=== PATIENT | male | born 1935 | race Caucasian/White ===

== ENCOUNTER 2017-02-01 05:52 | Day surgery (SDC) | payer OTHER ==
--- NOTE | 2017-01-31 13:47 | PREOPHP ---
DATE OF ADMISSION: 02/01/2017 REASON FOR ADMISSION: This 81-year-old patient is admitted for elective cataract surgery of the left eye. The patient has had progressive decrease of vision in both eyes over the past three years without prior history of eye disease or injury. The patient's systemic history is positive for hypertension and hypercholesterolemia. MEDICATIONS: Current medications include: 1. Hydrochlorothiazide. 2. Simvastatin. ALLERGIES: THERE ARE NO KNOWN ALLERGIES. PHYSICAL EXAMINATION: On examination, the visual acuity with correction is 20/50 in the right eye and 20/100 in the left eye. Slit lamp examination reveals an advance nuclear sclerotic cataract greater in the left eye than in the right eye. Applanation tonometry is 19 mmHg. Examination of the retina is within normal limits. DIAGNOSIS: Cataract left eye. Planned cataract extraction with lens implant left eye. The risks and alternatives to this surgery have been discussed with the patient, as well as the hope for improvement of visual acuity leading to great ability to perform activities of daily living. The patient understands this and agrees to proceed with surgery. Dictated By: Ovidio Watson MD /[email or web address] /Document#: [id number]
[~2017-02-01] VITALS: Ht 160 cm; Wt 56.0 kg
[2017-02-01] VITALS (12 sets, daily range): BP systolic 103–125; BP diastolic 65–74; PULSE 54–59; RESP 18–24; Ht 160 cm; Wt 56.0 kg
[2017-02-01] MEDS ORDERED: CARBACHOL 0.01% 1.5 ML OPH INJ ONE ×2 (06:28→06:30)
[2017-02-01] MEDS ORDERED: GENTAMICIN 80 MG INJ ONE (06:28)
[2017-02-01] MEDS ORDERED: DEXAMETHASONE 4 MG/ML 1 ML INJ ONE (06:28)
[2017-02-01] MEDS ORDERED: CEFAZOLIN 1 GM INJ ONE ×2 (06:28→06:30)
[2017-02-01] MEDS ORDERED: HYALURONATE/CHONDROITIN 1ML OPH INJ ONE (06:29)
[2017-02-01] MEDS ORDERED: EPINEPHrine 1 MG INJ ONE (06:29)
[2017-02-01] MEDS ORDERED: LIDOCAINE 4% (MPF) 5 ML INJ ONE (06:29)
[2017-02-01] MEDS ORDERED: HYDR12.58 PO (07:27)
[2017-02-01] MEDS ORDERED: SIMV20TA PO (07:28)
[2017-02-01] MEDS: CIPROFLOXACIN 0.3% 2.5 ML OPH LEFT EYE SCH ×3 (07:29→07:41)
[2017-02-01] MEDS: DICLOFENAC 0.1% 2.5 ML OPH LEFT EYE SCH ×3 (07:29→07:42)
[2017-02-01] MEDS: TROPICAMIDE 1% 2 ML OPH LEFT EYE SCH ×3 (07:29→07:41)
[2017-02-01] MEDS: CYCLOPENTOLATE/PHENYLEPH 2 ML OPH LEFT EYE SCH ×3 (07:30→07:41)
[2017-02-01] MEDS ORDERED: PROPOFOL 20 ML ONE (07:46)
[2017-02-01] MEDS ORDERED: FENTAnyl 50 MCG/ML VIAL ONE (07:46)
[2017-02-01] MEDS ORDERED: CEFAZOLIN 1 GM INJ INJ ONE (08:11)
[2017-02-01] MEDS ORDERED: DEXAMETHASONE 4 MG/ML 1 ML INJ INJ ONE (08:11)
[2017-02-01] MEDS ORDERED: CARBACHOL 0.01% 1.5 ML OPH INJ IO ONE (08:11)
[2017-02-01] MEDS ORDERED: HYALURONATE/CHONDROITIN 1ML OPH INJ IO ONE (08:11)
--- NOTE | 2017-02-01 08:48 | OPR ---
Date/Time of Note Date/Time of Note DATE: 02/01/17 TIME: 08:46 Operative Report Procedure Date: Feb 01, 2017 Preoperative Diagnosis cataract os Postoperative Diagnosis same Operation Performed cataract surgery os Surgeon: DANIELA FRIAS MD Anesthesia Type: MAC Estimated Blood Loss: none Transfusion Required: no Specimen: none Grafts/Implants lens implant Complications: no Pt Condition Post Procedure: stable Disposition: other DANIELA FRIAS MD Feb 01, 2017 08:48
[2017-02-01] MEDS ORDERED: ONDANSETRON 4 MG INJ IV PRN (09:00)
[2017-02-01] MEDS ORDERED: OXYCODONE/ACETAMINOPHEN (5/325) TAB PO PRN (09:00)
--- NOTE | 2017-02-01 09:05 | OPR ---
DATE OF OPERATION: 02/01/2017 PREOPERATIVE DIAGNOSIS: Cataract, left eye. POSTOPERATIVE DIAGNOSIS: Cataract, left eye. SURGEON: Ovidio Watson MD ANESTHESIA: Local standby. ANESTHESIOLOGIST: Moisés Myers CRNA OPERATION: Cataract extraction with lens implant, left eye. PROCEDURE: The patient was brought to the operating room and placed on the table with an IV in place and the patient attached to an jewelry designer. Oxygen was given via face mask. After some intravenous sedation was administered, local anesthesia was given using Xylocaine 2% with epinephrine, mixed with Marcaine 0.5%. This was given in a lid block and retrobulbar injection. The patient was then prepped and draped in the usual sterile manner. A wire lid speculum was inserted between the lids of the * eye. A Superblade was used to enter the anterior chamber at the corneoscleral limbus at the 10:30 o'clock position. A separate incision was made using a 3.0-mm keratome which entered the corneoscleral junction at the 12 o'clock position. Through this 3- mm opening, an irrigating cystotome was introduced into the anterior chamber. The chamber was filled with Viscoat and an anterior capsulotomy was performed. Balanced salt solution was then used for hydrodissection of the lens. A phacoemulsification handpiece was then brought into the field and introduced into the anterior chamber. The lens nucleus was emulsified using a deep groove and cracking the nucleus into quadrants. Following this, each quadrant was aspirated and emulsified at the pupillary margin. After this was completed, the irrigation/aspiration handpiece was brought to the field, introduced into the posterior chamber, and the lens cortical material was removed. When this was completed, additional Viscoat was injected into the anterior and posterior chambers. The 3-mm opening had its internal lips enlarged, and then the posterior chamber intraocular lens measuring 20.5 diopters ([employer] model LI61AO) was then injected into the posterior chamber using the lens injector system. After the leading haptic was introduced into the capsular bag and the lens optic was present in the center of the eye, the injector was removed and the trailing haptic was grasped with non-toothed forceps and introduced into the capsular fold superiorly. A Sinskey hook was then used to rotate the intraocular lens so that the lips were oriented in the horizontal meridian. One 10-0 nylon suture was placed across the wound. Prior to tying, the irrigation/aspiration handpiece was reintroduced into the anterior chamber to remove the Viscoat. Miochol was instilled to constrict the pupil, and then the 10-0 nylon suture was tied. The ends were cut short and then the knot was buried. Then, 0.5 mL of dexamethasone and 0.5 mL of Ancef were injected into the sub-Tenon space in the inferior fornix. Ciloxan drops were then placed on the surface of the eye. The speculum was removed and a patch was applied. The patient then left the operating room in satisfactory condition. Dictated By: Ovidio Watson MD /[email or web address] /Document#: [id number]
== END 2017-02-01 10:14 | disposition home or self-care (01) ==
LOC: SDS 05:52
PROVIDERS: ATTEND Ophthalmology
DX: H25.12 Age-related nuclear cataract, left eye (principal); I10 Essential (primary) hypertension; E78.5 Hyperlipidemia, unspecified
CPT/HCPCS: 66984; J0171; J0690; J1100; J1580; J3010; V2632

== ENCOUNTER 2017-04-12 06:01 | Day surgery (SDC) | payer OTHER ==
--- NOTE | 2017-04-11 13:26 | PREOPHP ---
DATE OF ADMISSION: 04/12/2017 HISTORY OF PRESENT ILLNESS: This 81-year-old patient is admitted for elective cataract surgery of t he right eye. The patient has had progressive deterioration of vision in both eyes over the prior 3 years, and 2 months ago underwent cataract surgery of the left eye with excellent visual recovery. Patient's systemic history is positive for hypertension and hypercholesterolemia. CURRENT MEDICATIONS: Include: 1. Hydrochlorothiazide 2. Simvastatin. ALLERGIES: THERE ARE NO KNOWN ALLERGIES. PHYSICAL EXAMINATION: The visual acuity with best correction is 20/70 in the right eye and 20/40 in the left eye. Slit lamp examination reveals a nuclear sclerotic cataract in the right eye. The le ft eye has a posterior chamber intraocular lens with mild to moderate posterior capsular opacificati on. Applanation tonometry is 17 mmHg. Examination of the retina is within normal limits. DIAGNOSIS: Cataract, right eye. PLAN: Cataract extraction with lens implant, right eye. The risks and alternatives to the surgery have been discussed with the patient as well as the ability to improve visual acuity, leading to a g reater ability to perform activities of daily living. The patient understands this and agrees to pr oceed with cataract surgery of the right eye. Dictated By: DANIELA MA/JF Conf#: [id number] DID#: [id number]
[~2017-04-12] VITALS: Ht 162.6 cm; Wt 60.0 kg
[2017-04-12] VITALS (9 sets, daily range): BP systolic 117–136; BP diastolic 70–76; PULSE 58–70; RESP 14–18; Ht 162.6 cm; Wt 60.0 kg
[~2017-04-12 06:01] MED LIST: CARBACHOL 0.01% 1.5 ML OPH INJ IO ONE; CEFAZOLIN 1 GM INJ INJ ONE; CIPROFLOXACIN 0.3% 2.5 ML OPH OPER SCH; CYCLOPENTOLATE/PHENYLEPH 2 ML OPH OPER SCH; DEXAMETHASONE 4 MG/ML 1 ML INJ INJ ONE; DICLOFENAC 0.1% 2.5 ML OPH OPER SCH; HYDR12.58 PO; SIMV20TA PO; SOD CHLORIDE 0.9% 1,000 ML IV SCH; TROPICAMIDE 1% 2 ML OPH OPER SCH
[2017-04-12] MEDS ORDERED: GENTAMICIN 80 MG INJ ONE (06:27)
[2017-04-12] MEDS ORDERED: DEXAMETHASONE 4 MG/ML 1 ML INJ ONE (06:27)
[2017-04-12] MEDS ORDERED: CEFAZOLIN 1 GM INJ ONE (06:27)
[2017-04-12] MEDS ORDERED: CARBACHOL 0.01% 1.5 ML OPH INJ ONE (06:27)
[2017-04-12] MEDS ORDERED: EPINEPHrine 1 MG INJ ONE (06:28)
[2017-04-12] MEDS ORDERED: LIDOCAINE 4% (MPF) 5 ML INJ ONE (06:28)
[2017-04-12] MEDS ORDERED: PROPOFOL 20 ML ONE (06:50)
[2017-04-12] MEDS ORDERED: FENTAnyl 50 MCG/ML VIAL ONE (06:50)
[2017-04-12] MEDS ORDERED: LABETALOL HCL 20MG INJ IV PRN (07:00)
[2017-04-12] MEDS ORDERED: ONDANSETRON 4 MG INJ IV PRN (07:00)
[2017-04-12] MEDS ORDERED: TETRACAINE 0.5% 4 ML OPH RIGHT EYE ONE (07:00)
[2017-04-12] MEDS ORDERED: OXYCODONE/ACETAMINOPHEN (5/325) TAB PO PRN ×2 (07:00)
[2017-04-12] MEDS ORDERED: LIDOCAINE 1% (MPF) 10 ML INJ ONE (07:17)
[2017-04-12] MEDS ORDERED: TETRACAINE 0.5% 4 ML OPH ONE (07:17)
--- NOTE | 2017-04-12 08:09 | SIPON ---
Date/Time of Note Date/Time of Note DATE: 04/12/17 TIME: 08:07 Operative Report Preoperative Diagnosis cataract od Postoperative Diagnosis same Operation/Procedure Performed cataract extraction/lens implant od Surgeon Thomas Frias assistant professor of art none Anesthesia: MAC Estimated blood loss: none Transfusion Required none Specimen none Grafts/Implants posterior chamber lens implant Complications none DANIELA FRIAS MD Apr 12, 2017 08:09
--- NOTE | 2017-04-12 08:09 | SIPON ---
Date/Time of Note Date/Time of Note DATE: 04/12/17 TIME: 08:07 Operative Report Preoperative Diagnosis cataract od Postoperative Diagnosis same Operation/Procedure Performed cataract extraction/lens implant od Surgeon Thomas Frias assistant county engineer none Anesthesia: MAC Estimated blood loss: none Transfusion Required none Specimen none Grafts/Implants posterior chamber lens implant Complications none DANIELA FRIAS MD Apr 12, 2017 08:09
--- NOTE | 2017-04-12 08:09 | SIPON ---
Date/Time of Note Date/Time of Note DATE: 04/12/17 TIME: 08:07 Operative Report Preoperative Diagnosis cataract od Postoperative Diagnosis same Operation/Procedure Performed cataract extraction/lens implant od Surgeon Thomas Frias certified surgical tech/first assistant none Anesthesia: MAC Estimated blood loss: none Transfusion Required none Specimen none Grafts/Implants posterior chamber lens implant Complications none DANIELA FRIAS MD Apr 12, 2017 08:09
--- NOTE | 2017-04-12 09:12 | OPR ---
DATE OF OPERATION: 04/12/2017 PREOPERATIVE DIAGNOSIS: Cataract, right eye. POSTOPERATIVE DIAGNOSIS: Cataract, right eye. OPERATION PERFORMED: Cataract extraction with lens implant, right eye. SURGEON: Daniela Watson MD. ANESTHESIA: Local standby. ANESTHESIOLOGIST: Moisés Myers CRNA OPERATION: Phacoemulsification with posterior chamber intraocular lens implant, right eye. PROCEDURE: The patient was brought to the operating room and placed on the table with an IV in plac e and the patient attached to an [employer] law clerk. Oxygen was given via face mask. After some intravenous sedation was administered, local anesthesia was given using Xylocaine 2% with epinephrine, mixed with Marcaine 0.5%. This was given in a lid block and retrobulbar injection. The patient was then prepped and draped in the usual sterile manner. A wire lid speculum was inserted between the lids of the right eye. A Superblade was used to enter t he anterior chamber at the corneoscleral limbus at the 10:30 o'clock position. A separate incision w as made using a 3.0-mm keratome which entered the corneoscleral junction at the 12 o'clock position. Through this 3-mm opening, an irrigating cystotome was introduced into the anterior chamber. The ch maddie was filled with Viscoat and an anterior capsulotomy was performed. Balanced salt solution was then used for hydrodissection of the lens. A phacoemulsification handpiece was then brought into th e field and introduced into the anterior chamber. The lens nucleus was emulsified using a deep groov e and cracking the nucleus into quadrants. Following this, each quadrant was aspirated and emulsifie d at the pupillary margin. After this was completed, the irrigation/aspiration handpiece was brought to the field, introduced i nto the posterior chamber, and the lens cortical material was removed. When this was completed, padma tional Viscoat was injected into the anterior and posterior chambers. The 3-mm opening had its internal lips enlarged, and then the posterior chamber intraocular lens malena suring 21.0 diopters posterior chamber (Bausch and Lomb Model LI61AO) was then injected into the pos terior chamber using the lens injector system. After the leading haptic was introduced into the caps ular bag and the lens optic was present in the center of the eye, the injector was removed and the t railing haptic was grasped with non-toothed forceps and introduced into the capsular fold superiorly . A Sinskey hook was then used to rotate the intraocular lens so that the lips were oriented in the horizontal meridian. One 10-0 nylon suture was placed across the wound. Prior to tying, the irrigation/aspiration handpiece was reintroduced into the anterior chamber to re move the Provisc. Miochol was instilled to constrict the pupil, and then the 10-0 nylon suture was t ied. The ends were cut short and then the knot was buried. Then, 0.5 mL of dexamethasone and 0.5 mL of Ancef were injected into the sub-Tenon space in the infe rior fornix. Ciloxan drops were then placed on the surface of the eye. The speculum was removed and a patch was applied. The patient then left the operating room in satisfactory condition. Dictated By: DANIELA MA/JF Conf#: [id number] DID#: [id number]
== END 2017-04-14 09:30 | disposition home or self-care (01) ==
LOC: SDS 06:01
PROVIDERS: ATTEND Ophthalmology
DX: H25.11 Age-related nuclear cataract, right eye (principal); I10 Essential (primary) hypertension
CPT/HCPCS: 66984; J0171; J0690; J1100; J1580; J3010; V2632

== ENCOUNTER → 2017-06-28 | Outpatient (CLI) | END | disposition home or self-care (01) ==